=== PATIENT | female | born 1950 | race American Indian/Alaskan Native ===

== ENCOUNTER 2020-11-14 12:50 | Emergency (ER) | payer MEDICARE ==
[~2020-11-14] VITALS: Ht 162.6 cm; Wt 81.6 kg
[2020-11-14] MEDS ORDERED: AZITHROMYCIN250 MG PO (14:28)
[2020-11-14] MEDS ORDERED: AFRIN15 ML INH (14:28)
[2020-11-14] MEDS ORDERED: TESSALON PERLE100 MG PO (14:28)
== END 2020-11-14 14:40 | disposition home or self-care (01) ==
LOC: FSED 12:52
DX: J06.9 Acute upper respiratory infection, unspecified (principal); Z88.2 Allergy status to sulfonamides; Z88.8 Allergy status to other drugs, medicaments and biological substances
CPT/HCPCS: 71046; 99283